=== PATIENT | male | born 1995 | race Caucasian/White ===

== ENCOUNTER 2019-02-08 10:29 | Emergency (ER) | payer OTHER ==
[~2019-02-08] VITALS: Ht 185.4 cm; Wt 97.5 kg
[2019-02-08] MEDS ORDERED: NKM (10:36)
[2019-02-08 10:40] VITALS: BP 129/82
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
[2019-02-08] MEDS ORDERED: IBUPROFEN600 MG ORAL (11:58)
[2019-02-08 12:08] VITALS: BP 129/82
--- NOTE | 2019-02-08 12:08 | NUR ---
ER DISCHARGE NOTE: Patient is cleared to be discharged per ERMD, pt is aox4, on room air, with stable vital signs. pt was given dc and prescription instructions, pt was able to verbalize understanding, pt id band removed without complications. pt is able to ambulate with steady gait. pt took all belongings.
== END 2019-02-08 12:08 | disposition home or self-care (01) ==
LOC: EMR 11:53
DX: S63.501A Unspecified sprain of right wrist, initial encounter (principal); T14.8XXA Other injury of unspecified body region, initial encounter; V03.90XA Pedestrian on foot injured in collision with car, pick-up truck or van, unspecified whether traffic or nontraffic accident, initial encounter; Y92.410 Unspecified street and highway as the place of occurrence of the external cause; Z88.0 Allergy status to penicillin; K21.9 Gastro-esophageal reflux disease without esophagitis
CPT/HCPCS: 29125; 99283